=== PATIENT | male | born 1955 ===

== ENCOUNTER 2016-12-08 10:30 | Day surgery (SDC) | payer OTHER ==
[2016-12-08 11:13] VITALS: BMI 27.3
[2016-12-08 11:28] VITALS: TEMP 97.1; O2SAT 100
--- NOTE | 2016-12-08 13:11 | CP.SDSHP ---
Same Day Surgery H & P - History Proposed Procedure: colonoscopy - Previous Medical/Surgical History Cardiac: Hypertension - Allergies Allergies: Allergies No Known Allergies Allergy (Verified 12/08/16 11:13) - Physical Exam Vital Signs: Vital Signs 12/08/16 11:00 Temperature 97.1 F L Pulse Rate 63 Respiratory 20 Rate Blood Pressure 138/90 O2 Sat by Pulse 100 Oximetry - Date & Time Date: 12/08/16 Time: 13:11 Short Stay Discharge - Short Stay Discharge Admitting Diagnosis/Reason for Visit: PERSONAL HISTORY OF COLONIC POLYPS Disposition: HOME/ ROUTINE
[2016-12-08] MEDS ORDERED: Propofol 10 mg/ml Inj (20 ML) ONE (13:15)
[2016-12-08 16:07] VITALS: PULSE 84
[2016-12-08 16:14] VITALS: BP 115/77; RESP 16
== END 2016-12-08 15:03 | disposition home or self-care (01) ==
LOC: C.ENDO 10:30
PROVIDERS: ATTEND Colon & Rectal Surgery
DX: D12.0 Benign neoplasm of cecum (principal); Z86.010 Personal history of colon polyps; Z80.0 Family history of malignant neoplasm of digestive organs; K64.8 Other hemorrhoids; I10 Essential (primary) hypertension
CPT/HCPCS: 45380; 88305; J2704